=== PATIENT | male | born 1990 | race Caucasian/White ===

== ENCOUNTER 2021-03-02 13:27 | Emergency (ER) | payer SELFPAY ==
[~2021-03-02] VITALS: Ht 157.5 cm; Wt 54.4 kg
--- NOTE | 2021-03-02 13:30 | NUR ---
DR LUNDBERG AT BEDSIDE
[2021-03-02 13:31] VITALS: BP_SYST 103
--- NOTE | 2021-03-02 13:31 | NUR ---
Placed in room 1 . Placed on bus monitor, blood pressure machine and pulse oximeter. To gown for exam. Side rails up. Report given to Carlito OLIVEIRA.
--- NOTE | 2021-03-02 13:34 | NUR ---
RECEIVED AND IN ROOM , [facility] FROM [facility] WHERE IS BECAME UNRESPOSIVE DURING POLICE CUSTODY. UPON ASSESSMENT HE IS LETHARGIC UNCOOPERATIVE AND SLOW TO RESPOND, VSS, DENIES TAKING FOREIGN SUBSTANCES
[2021-03-02 13:54] LABS: BASOPHILS # (AUTO) 0.1 K/uL (0.0-0.2); BASOPHILS % (AUTO) 1.5 % (0.0-2.0); EOSINOPHILS # (AUTO) 0.2 K/uL (0.0-0.4); EOSINOPHILS % (AUTO) 2.6 % (0.0-4.0); HEMATOCRIT 38.3 % (36-54); LYMPHOCYTES # (AUTO) 2.8 K/uL (1.0-5.5); MEAN CORPUSCULAR HEMOGLOBIN 31 pg (27-31); MEAN CORPUSCULAR HGB CONC 34 % (32-36); MEAN CORPUSCULAR VOLUME 90 fL (79.0-98.0); MONOCYTES # (AUTO) 0.8 K/uL (0.0-1.0); MONOCYTES % (AUTO) 10.4 % (1.7-9.3); NEUTROPHILS # (AUTO) 3.5 K/uL (1.8-7.7); NEUTROPHILS % (AUTO) 47.5 % (40.0-70.0); PLATELET COUNT (AUTO) 269 K/uL (130-430); RED BLOOD CELL COUNT(AUTO) 4.25 MIL/uL (4.2-6.2); RED CELL DISTRIBUTION WIDTH 13.7 % (9.0-15.0); WHITE BLOOD COUNT (AUTO) 7.4 K/uL (4.8-10.8)
--- NOTE | 2021-03-02 13:57 | NUR ---
[place] PD IN TO ASSESS, PT UNABLE TO COMMUNICATE. INFO LEFT BY PD
--- NOTE | 2021-03-02 13:58 | NUR ---
CALL [facility] PRIOR TO DISCHARGE
--- NOTE | 2021-03-02 13:59 | NUR ---
[facility] [phone]. CALL PRIOR TO DISCHARGE
--- NOTE | 2021-03-02 14:02 | NUR ---
SLOW TO RESPOND, DIFFICULT TO AROUSE, RESP UNLABORED, SKIN WARM AND DRY.
[2021-03-02 14:10] LABS: ANION GAP 9 (5-15); CALCIUM 9.2 mg/dL (8.4-11.0); CHLORIDE 102 mmol/L (98-107); CREATININE 0.75 mg/dL (0.55-1.30); GLUCOSE 78 mg/dL (70-99); POTASSIUM 3.8 mmol/L (3.5-5.1); SODIUM SERUM 138 mmol/L (136-145); UREA NITROGEN, BLOOD 21 mg/dL (8-21)
[2021-03-02 14:11] LABS: GFR AFRICAN AMERICAN 159 mL/min (>90)
[2021-03-02 14:15] LABS: ALANINE AMINOTRANSFERASE 125 U/L (12-78); ASPARTATE AMINOTRANSFERASE 70 U/L (10-37); TOTAL BILIRUBIN 0.2 mg/dL (0.0-1.0)
[2021-03-02 14:17] LABS: ACETAMINOPHEN < 1 ug/mL (1-30); ALCOHOL, BLOOD < 3 mg/dL (<10)
--- NOTE | 2021-03-02 16:03 | NUR ---
SLOW TO RESPOND, EYES OPEN TO PAINFUL STIMULI.
[2021-03-02 17:21] LABS: BILIRUBIN,URINE NEGATIVE (NEGATIVE); CLARITY/URINE CLEAR (CLEAR); COLOR,URINE YELLOW (YELLOW); GLUCOSE,URINE NEGATIVE (NEGATIVE); KETONES,URINE NEGATIVE (NEGATIVE); LEUKOCYTE ESTERASE ,URINE NEGATIVE (NEGATIVE); NITRITE, URINE NEGATIVE (NEGATIVE); PH,URINE 5.5 (5.0-8.0); PROTEIN URINE NEGATIVE (NEGATIVE); UROBILINOGEN,URINE 0.2 (0.2-1.0)
[2021-03-02 18:25] LABS: BLOOD, URINE TRACE (NEGATIVE)
[2021-03-02 18:30] LABS: BARBITURATE, URINE NEGATIVE (NEG <=200); BENZODIAZEPINE, URINE NEGATIVE (NEG <=150); CANNABINOID, URINE NEGATIVE (NEG <=50); COCAINE, URINE NEGATIVE (NEG <=150); METHAMPHETAMINES SCREEN,URINE POSITIVE (NEG <=500); OPIATE, URINE NEGATIVE (NEG <=100); PHENCYCLIDINE SCREEN,URINE NEGATIVE (NEG <=25); UR TRICYCLIC ANTIDEPRESSANTS NEGATIVE (NEG <=300); URINE METHADONE NEGATIVE (NEG <=200); URINE OXYCODONE SCREEN NEGATIVE (NEG <=100); URINE PROPOXYPHENE SCREEN NEGATIVE (NEG <=300)
[2021-03-02 18:31] LABS: URINE AMPHETAMINE POSITIVE (NEG <=500)
--- NOTE | 2021-03-02 19:00 | NUR ---
DIFFICULT TO AROUSE, RESP UNLABORED, SKIN WARM AND DRY. NO DISTRESS OBSERVED
--- NOTE | 2021-03-02 19:13 | NUR ---
ASSUMING CARE FROM MARY OLIVEIRA. PT HAS AWOKEN AND RESPONDING.
[2021-03-02 19:26] LABS: BACTERIA,URINE FEW /HPF (None Seen); RBC,URINE 0-3 /HPF (0-3); WBC,URINE 0-3 /HPF (0-3)
[2021-03-02 19:27] LABS: MUCUS,URINE None Seen /LPF (None Seen)
--- NOTE | 2021-03-02 19:31 | NUR ---
PT GIVEN A MEAL TRAY
--- NOTE | 2021-03-02 19:59 | NUR ---
PD AT BEDSIDE
[2021-03-02 20:08] VITALS: BP_SYST 88
== END 2021-03-02 20:06 | disposition home or self-care (01) ==
LOC: SED 13:27
DX: R41.82 Altered mental status, unspecified (principal); Z79.899 Other long term (current) drug therapy
CPT/HCPCS: 36415; 71045; 80053; 80307; 81000; 84484; 85025; 93005; 99285; G0480; G0481; G0482